=== PATIENT | male | born 1955 | race Caucasian/White ===

== ENCOUNTER 2017-04-12 20:09 | Emergency (ER) | payer BC, OTHER ==
[~2017-04-12] VITALS: Ht 182.9 cm; Wt 108.0 kg
[~2017-04-12 20:09] MED LIST: ACETAMINOPHEN325 M1 PO; ALLEGRA60 MG PO; ALLOPURINOL 10100 M1 PO; ALLOPURINOL 30300 M2 PO; ALLOPURINOL 30300 M3 PO; ASPIRIN EC81 M1 PO; ATENOLOL 25 MG25 M1 PO; AUGMENTIN 875875 M1 PO; AVELOX 400 MG400 M1 PO; CARISOPRODOL 3350 MG PO; COUMADIN 1MG TAB1 M1 PO; COUMADIN 5 MG TA5 M1 PO; DEPAKOTE ER500 MG PO; DIVALPROEX SOD250 M3 PO; EFFEXOR75 MG; ENOXAPARIN100 MG/1 M SQ; ETODOLAC500 MG PO; FEXOFENADINE HC60 MG PO; FLUNISOLIDE25 M1 NASAL; FLUNISOLIDE25 M1 NS; GABAPENTIN100 MG PO; GLYCOLAX POWDER17 G1 PO; GLYCOLAX POWDER17 GM PO; GRALISE600 MG PO; JANTOVEN7.5 MG PO; LIDODERM 5%1 PATC1 TOP; MORPHINE SU0.2 MG/ML PO; MORPHINE SULFAT15 M3 PO; MS CONTIN30 MG PO; NASALCROM40 MG/1 ML NASAL; NASAREL25 ML NASAL; NEURONTIN800 MG PO; NIACIN500 MG PO; NUCYNTA ER150 MG PO; OMEPRAZOLE 20 M20 MG PO; ORAMORPH SR30 M1 PO; OXYCODONE HCL5 M1 PO; PRAVACHOL40 MG PO; PRAVACHOL80 MG PO; PRAVASTATIN SOD80 MG PO; PROAIR HFA8.5 GM INH; PROTONIX40 M1 PO; QUETIAPINE FUM100 MG PO; QUETIAPINE FUMA25 MG PO; RISPERDAL2 MG PO; SENNA S TABLET1 EACH PO; SENNA-LAX8.6 MG PO; SEROQUEL 100 M100 M1 PO; SEROQUEL 50 MG50 M1 PO; STOOL SOFTENER50 MG PO; VENLAFAXINE HCL25 MG PO; VENTOLIN HFA INH8 GM; WELLBUTRIN 100100 M1 PO; WELLBUTRIN 75 M75 M1 PO
[2017-04-12 20:59] VITALS: BP 156/95
== END 2017-04-12 20:55 | disposition home or self-care (01) ==
LOC: ER 20:09
DX: J02.8 Acute pharyngitis due to other specified organisms (principal); B97.89 Other viral agents as the cause of diseases classified elsewhere; I10 Essential (primary) hypertension; M10.9 Gout, unspecified; M54.9 Dorsalgia, unspecified; G89.29 Other chronic pain; G47.33 Obstructive sleep apnea (adult) (pediatric)